=== PATIENT | male | born 1940 | race Caucasian/White ===

== ENCOUNTER 2016-12-12 15:05 | Emergency (ER) | payer MEDICARE ==
[~2016-12-12] VITALS: Ht 175.3 cm; Wt 84.1 kg
[~2016-12-12 15:05] MED LIST: CHOL200047 PO; KRIL500C PO; LISI10TA PO; MECO5000 PO; SILD100T PO; SIMV20TA4 PO; TAMS0.4C29 PO; UBID100C PO; WARF5TAB7 PO
[2016-12-12 15:13] VITALS: BP 197/95; PULSE 54; RESP 16; O2SAT 99
[2016-12-12 15:41] LABS: APPEARANCE,URINE HAZY (CLEAR,HAZY); COLOR,URINE STRAW (YELLOW)
[2016-12-12 15:42] LABS: OCCULT BLOOD,URINE SMALL (NEGATIVE); UROBILINOGEN,URINE NORMAL (NORMAL)
[2016-12-12 16:21] LABS: BASOPHILS % (AUTO) 0.5 % (0-3); EOSINOPHILS % (AUTO) 4.2 % (0-5); MONOCYTES % (AUTO) 9.7 % (4-12); Mean Corpuscular Hemoglobin 26.8 pg (27.0-35.0); NEUTROPHILS % (AUTO) 71.2 % (40-74); Platelet Count 171 bil/L (150-400)
[2016-12-12 16:37] LABS: INR 2.51 ratio
[2016-12-12 16:52] LABS: TROPONIN T < 0.010 ug/L (0.0-0.011)
[2016-12-12 17:58] VITALS: BP 198/86; PULSE 62; RESP 16; O2SAT 97
--- NOTE | 2016-12-12 18:01 | DRSVH ---
PROCEDURE: X-RAY CHEST, TWO VIEWS ([id number]) INDICATIONS: dizziness, high blood pressure TECHNIQUE: 2 views of the chest were acquired. COMPARISON: [facility], , CHEST 1VW (PORTABLE), 10/14/2011, 15:26. FINDINGS: Surgical changes and devices: None. Lungs and pleura: No pleural effusions or pneumothorax. Lungs show some streaky disease with obscur ation of a portion of the right hemidiaphragm suggesting a minimal right lower lobe infiltrate. There is an old calcified granuloma in the right midlung field. Mediastinum: Mediastinal contours are normal. Heart size is normal. Bones and chest wall: No suspicious bony abnormalities. Soft tissues appear unremarkable. IMPRESSION: Suspect minimal infiltrate right lung base. Dictated by: Sly Pires M.D. on 12/12/2016 at 17:59 Approved by: Sly Pires M.D. on 12/12/2016 at 18:00
--- NOTE | 2016-12-12 18:05 | ED.REPORT ---
HPI-General Illness Date of Service Dec 12, 2016 ED Provider: Doc,Ed MD History of Present Illness: 76-year-old gentleman with a history of essential hypertension prior stroke no known coronary disease presents with elevated blood pressure. Was seen by urology sent to the urgent care and emergency Department. Currently having no chest pain shortness of breath no stroke symptoms. He has been exercising recently and he does note that he has some mild left arm pain after increased exercise. That is getting less each time he exercises Nursing Notes Stated Complaint: HIGH BP - SENT FROM Chief Complaint: General Complaint Allergies: Coded Allergies: No Known Allergies (Verified Allergy, Unknown, 12/12/16) Scheduled Lisinopril (Lisinopril) 10 Mg Tablet 10 MG PO DAILY Lisinopril (Lisinopril) 20 Mg Tablet 20 MG PO DAILY Mecobalamin (B-12) 5,000 Mcg Tab.rapdis 5,000 MCG PO DAILY Sildenafil Citrate (Viagra) 100 Mg Tablet 100 MG PO UD Simvastatin (Simvastatin) 20 Mg Tablet 20 MG PO HS Tamsulosin ER (Tamsulosin ER) 0.4 Mg Cap.er.24h 0.4 MG PO DAILY Ubidecarenone (Coenzyme Q10) 100 Mg Capsule 100 MG PO DAILY Warfarin Sodium (Warfarin Sodium) 5 Mg Tablet 5 MG PO DAILY take .5 tablet on mondays Miscellaneous Medications Cholecalciferol (Vitamin D3) (Vitamin D3) 2,000 Unit Capsule 2,000 UNIT PO Krill Oil (Krill Oil) 500 Mg Capsule 500 MG PO General Time Seen by MD: 18:05 Chief Complaint Other high blood pressure Hx Obtained From: Patient Arrived By: Walk-in Sudden in Onset?: No Past Medical History Past Medical History CVA Reports: Hypertension, Denies: Coronary artery disease, Diabetes mellitus Past Surgical History none Smoking History Former Smoker Social History Alcohol Use: "Social" Ambulatory Status Independent Review of Systems Full Review of Systems Constitutional: Denies: Chills, Fatigue, Fever Eyes: Denies: Diplopia Respiratory: Denies: Dyspnea on exertion, Non-productive cough GI: Denies: Abdominal pain Musculoskeletal: Denies: Back pain Neurologic: Denies: Abnormal movement, Change LOC, Confusion, Focal weakness Complete sys rev & neg: except as marked. Physical Exam Vital Signs Vital Signs Date Time Temp Pulse Resp B/P Pulse Ox O2 Delivery O2 Flow Rate FiO2 12/12/16 17:58 36.4 62 16 198/86 97 12/12/16 15:13 36.6 54 16 197/95 99 Room Air Initial VS: Reviewed General/Constitutional: Well-developed, Well-nourished Head / Eyes: Atraumatic, Normocephalic, PERRL ENT: Mucous membranes moist, Conjunctiva normal, No scleral icterus Neck: Supple (no carotid bruits) Respiratory: Breath sounds normal Cardiovascular: Regular rate & rhythm (no murmurs) Abdomen / GI: Soft, Non-tender Lymphatic: No lymphadenopathy Extremities: Vascular intact Skin: Warm Neurologic: Alert Psychiatric: Mood/affect normal Interpretation & Diagnostics Lab Results Interpretation Result Diagram: 12/12/16 1610 12/12/16 1610 Test 12/12/16 15:30 12/12/16 16:10 Urine Color Straw (YELLOW) Urine Appearance Hazy (CLEAR,HAZY) Urine pH 6.0 (5.0-8.0) Urine Specific Crete 1.005 (1.003-1.035) Urine Protein Negativemg/dL (NEG,TRACE) Urine Glucose (UA) Negativemg/dL (NEGATIVE) Urine Ketones Negativemg/dL (NEGATIVE) Urine Occult Blood Small (NEGATIVE) Urine Nitrite Negative (NEGATIVE) Urine Bilirubin Negative (NEGATIVE) Urine Urobilinogen Normalmg/dL (NORMAL) Urine Leukocyte Esterase Negative (NEGATIVE) Urine RBC 0-2/hpf (0-2) Urine WBC 0-5/hpf (0-5) Urine Epithelial Cells Occasional/hpf (NONE-MOD) Urine Crystals None seen (NONE SEEN) Urine Bacteria None/hpf (NONE-FEW) Urine Hyaline Casts None/lpf (NONE) Urine Granular Casts None seen (NONE SEEN) Urine Waxy Casts None seen (NONE SEEN) Urine Red Blood Cell Casts None seen (NONE SEEN) Urine White Blood Cell Casts None seen (NONE SEEN) Urine Mucus None seen (None Seen) Urine Trichomonas None seen (NONE SEEN) Urine Yeast None (NONE SEEN) Urinalysis Comment None Urine Culture Reflexed Not indicated White Blood Count 6.2th/mm3 (3.8-10.1) Red Blood Count 6.30mil/mm3 (4.40-5.80) Hemoglobin 16.9g/dL (13.8-17.2) Hematocrit 51.0% (41.0-50.0) Mean Corpuscular Volume 81.0fL (81-100) Mean Corpuscular Hemoglobin 26.8pg (27.0-35.0) Mean Corpuscular Hemoglobin Concent 33.1% (32.0-37.0) Red Cell Distribution Width 16.5% (12.3-15.4) Platelet Count 171bil/L (150-400) Neutrophils (%) (Auto) 71.2% (40-74) Lymphocytes (%) (Auto) 14.2% (14-46) Monocytes (%) (Auto) 9.7% (4-12) Eosinophils (%) (Auto) 4.2% (0-5) Basophils (%) (Auto) 0.5% (0-3) Prothrombin Time 27.4sec (8.1-12.5) Prothromb Time International Ratio 2.51ratio Sodium Level 141mEq/L (134-144) Potassium Level 4.2mEq/L (3.5-5.2) Chloride Level 103mEq/L (97-108) Carbon Dioxide Level 24mmol/L (18-29) Blood Urea Nitrogen 14mg/dL (8-27) Creatinine 1.24mg/dL (0.76-1.27) Estimat Glomerular Filtration Rate 60mL/min (>59) Glucose Level 105mg/dL (60-99) Calcium Level 9.1mg/dL (8.5-10.1) Magnesium Level 2.0mg/dL (1.6-2.6) Total Bilirubin 1.0mg/dL (0.0-1.2) Aspartate Amino Transf (AST/SGOT) 20U/L (0-50) Alanine Aminotransferase (ALT/SGPT) 16U/L (0-44) Alkaline Phosphatase 64U/L (25-160) Troponin T < 0.010ug/L (0.0-0.011) Total Protein 6.6g/dL (6.4-8.4) Albumin 4.1g/dL (3.4-5.0) Hold Cassidy Top Tube Received (Received) X-Ray Interpretation Xray Interpretation: IMPRESSION: Suspect minimal infiltrate right lung base. Dictated by: Sly Pires M.D. on 12/12/2016 at 17:59 Please note, no clinical concern for infiltrate and no history suggesting pulmonary issues Re-Eval/Medical Decision Med Decision/Clinical Course Labs are unremarkable, chronically elevated blood pressure. Typically does quite a bit more activity when in [facility] has been more sedentary appear. will suggest doubling his lisinopril follow-up with primary care and make sure he is checking blood pressures. Reviewed 5 signs and symptoms of heart attack and stroke with instructions to return with either Therapeutic Coumadin level Discharge & Departure Primary Impression: Hypertension Disposition: Home Additional Instructions: You were seen with the urology office today and they noticed her blood pressure was a bit high. He was sent to urgent care and from there sent to the emergency department. Your blood work is reassuring today. There is no evidence of a heart attack or stroke. Chest x-ray is also reassuring. The blood pressure has been elevated and just prior to going home still in the 190/75 range. You are not having chest pain shortness of breath nor any arm pain. you currently are on 10 mg of lisinopril and you have a blood pressure cuff available at home. I am going to suggest that you increase your lisinopril to 20mg a day. Please take another 10mg tonight with your usual night medication. In the morning, please take 20mg of lisinopril. You need to take your blood pressures daily and bring in the list of pressures to your doctor in about 2 weeks to see how you are doing and if this is the correct change for you. With lisinopril, we frequently recheck your kidney function after dose changes and your doctor may choose to do this. If you have problems with chest pain, shortness of breath, pain going down the arm, any type of stroke symptoms, please return to the emergency department Thank you for being so patient with this all day today. I am glad you are able to go home and we did not find any severe life-threatening issues at this time Referrals: Carmine Pryor MD (PCP) copies to: Winter De Souza MD, Shawna L MD Dec 12, 2016 18:05
[2016-12-12] MEDS ORDERED: LISI-567 PO (18:50)
[2016-12-12 18:59] VITALS: BP 190/86; PULSE 62; RESP 16; O2SAT 98
== END 2016-12-12 19:00 | disposition home or self-care (01) ==
LOC: SED 15:05
DX: I10 Essential (primary) hypertension (principal); Z87.891 Personal history of nicotine dependence; Z86.73 Personal history of transient ischemic attack (TIA), and cerebral infarction without residual deficits; Z79.01 Long term (current) use of anticoagulants